=== PATIENT | male | born 1995 | race African-American/Black ===

== ENCOUNTER 2017-04-09 20:22 | Emergency (ER) | payer SELFPAY ==
[~2017-04-09] VITALS: Ht 185.4 cm; Wt 98.4 kg
[2017-04-09 20:29] VITALS: Ht 185.4 cm; Wt 98.4 kg
[2017-04-09] MEDS ORDERED: LIDOCAINE/MYLANTA 40 ML BTL PO ONE (22:00)
[2017-04-09] MEDS ORDERED: DEXAMETHASONE 10 MG/ML 1 ML INJ IM ONE (22:00)
[2017-04-09] MEDS ORDERED: LORAZEPAM 2 MG INJ IM ONE (22:00)
[2017-04-09 22:29] LABS: BASOPHIL # 0.1 10^3/ul (0.0-0.1); BASOPHILS % 0.5 % (0.0-2.0); EOSINOPHILS # 0.3 10^3/ul (0.0-0.5); EOSINOPHILS % 2.7 % (0.0-7.0); HEMATOCRIT 45.4 % (42.0-52.0); HEMOGLOBIN 15.6 g/dl (14.0-18.0); LYMPHOCYTES # 3.6 10^3/ul (0.8-2.9); LYMPHOCYTES % 30.5 % (15.0-51.0); MEAN CORPUSCULAR HGB CONC 34.4 g/dl (32.0-37.0); MEAN CORPUSCULAR VOLUME 90.3 fl (82.0-101.0); MEAN PLATELET VOLUME 9.3 fl (7.4-10.4); MONOCYTE # 1.3 10^3/ul (0.3-0.9); MONOCYTES % 11.3 % (0.0-11.0); NEUTROPHIL # 6.5 10^3/ul (1.6-7.5); NEUTROPHILS % 54.7 % (39.0-77.0); PLATELET COUNT 288 10^3/UL (140-415); RED BLOOD COUNT 5.03 10^6/ul (4.70-6.10); RED CELL DISTRIBUTION WIDTH 12.5 % (11.5-14.5); WHITE BLOOD COUNT 11.9 10^3/ul (4.8-10.8)
[2017-04-09 22:51] LABS: ANION GAP 16 (8-16); BLOOD UREA NITROGEN 10 mg/dl (7-20); CALCIUM 9.5 mg/dl (8.4-10.2); CARBON DIOXIDE 30 mmol/L (21-31); CHLORIDE 102 mmol/L (97-110); CREATININE 1.01 mg/dl (0.61-1.24); GLUCOSE 105 mg/dl (70-220); POTASSIUM 3.4 mmol/L (3.5-5.1); SODIUM 145 mmol/L (135-144)
[2017-04-09 23:04] LABS: TROPONIN-I < 0.012 ng/ml (0.00-0.12)
--- NOTE | 2017-04-09 23:38 | RADRPT ---
PROCEDURE: XR Chest. CLINICAL INDICATION: Chest pain. TECHNIQUE: Single frontal chest x-ray. COMPARISON: None. FINDINGS: The cardiomediastinal silhouette is unremarkable. There is no congestive heart failure.. No focal i nfiltrate is seen. There is no pleural effusion. There is no pneumothorax. The osseous structures are unremarkable. IMPRESSION: 1. No active disease. RPTAT: HMVK .Romario Raygoza MD, MD Date Time Electronically viewed and signed by .Romario Raygoza MD, MD on 04/09/2017 23:38 .K/
--- NOTE | 2017-04-09 23:43 | RADRPT ---
PROCEDURE: X-ray soft tissue neck CLINICAL INDICATION: Pain. Throat feels closed.. TECHNIQUE: Frontal and lateral x-rays of the soft tissues of the neck are available for review. COMPARISON: None available FINDINGS: The epiglottis is normal. The airway is clear. Prevertebral soft tissues are unremarkable The oss eous structures are unremarkable. There are no radiopaque foreign bodies. IMPRESSION: Negative examination. RPTAT: HMVK .Romario Raygoza MD, Date Time Electronically viewed and signed by .Romario Raygoza MD, MD on 04/09/2017 23:43 .K/
[2017-04-09] MEDS ORDERED: OMEP20CA16 PO (23:51)
[2017-04-09] MEDS ORDERED: RANI150T9 PO (23:51)
[2017-04-10] MEDS ORDERED: AZIT250T94 PO (00:03)
--- NOTE | 2017-04-12 01:47 | ERD ---
ER Documentation Chief Complaint Chief Complaint neck pain/sore throat/chest pain since yesterday HPI This patient is a 21-year-old male presenting to the emergency department with complaints of chest pain which onset suddenly while he was driving in [place] earlier this evening. He described it as midsternal, burning in nature, with radiation to his throat. He does have history of GERD. This felt similar. He denies fevers, chills, shortness of breath, or other symptoms currently. He took no medication prior to arrival. ROS All systems reviewed and are negative except as per history of present illness. Medications Home Meds Active Scripts Azithromycin* (Zithromax*) 250 Mg Tablet, 250 MG PO .ZPACK DIRECTED, #6 TAB TAKE 500 MG (2 TABS) THE FIRST DAY THEN 250 MG (1 TAB) DAYS 2-5 Prov:MONICA TAPIA PA-C 04/10/17 Ranitidine Hcl* (Zantac*) 150 Mg Tablet, 150 MG PO BID Y for EPIGASTRIC PAIN, # 30 TAB Prov:MONICA TAPIA PA-C 04/09/17 Omeprazole* (Omeprazole*) 20 Mg Capsule., 20 MG PO DAILY, #20 Prov:MONICA TAPIA PA-C 04/09/17 Allergies Allergies: Coded Allergies: No Known Drug Allergies (Verified Allergy, Unknown, 04/09/17) PMhx/Soc Medical and Surgical Hx: pt denies Medical Hx, pt denies Surgical Hx History of Surgery: No Anesthesia Reaction: No Hx Neurological Disorder: No Hx Respiratory Disorders: No Hx Cardiac Disorders: No Hx Psychiatric Problems: No Hx Miscellaneous Medical Probl: No Hx Alcohol Use: No Hx Substance Use: No Hx Tobacco Use: No Smoking Status: Never smoker Physical Exam Vitals Vital Signs Date Time Temp Pulse Resp B/P Pulse Ox O2 Delivery O2 Flow Rate FiO2 04/09/17 20:29 96.4 100 20 160/89 98 Physical Exam Const: Nontoxic male, slightly anxious secondary to symptoms. Head: Atraumatic Eyes: Normal Conjunctiva ENT: Normal External Ears, Nose and Mouth. Neck: Full range of motion..~ No meningismus. Resp: Clear to auscultation bilaterally Cardio: Regular rate and rhythm, no murmurs Abd: Soft, mild midepigastric tenderness palpation, no McBurney's point tenderness, no rebound tenderness or guarding., non distended. Normal bowel sounds Skin: No petechiae or rashes Ext: No cyanosis, or edema Neur: Awake and alert Psych: Normal Mood and Affect Result Diagram: 04/09/17221904/09/172219 Results 24 hrs Laboratory Tests Test 04/09/17 22:20 White Blood Count 11.910^3/ul Red Blood Count 5.0310^6/ul Hemoglobin 15.6g/dl Hematocrit 45.4% Mean Corpuscular Volume 90.3fl Mean Corpuscular Hemoglobin 31.0pg Mean Corpuscular Hemoglobin Concent 34.4g/dl Red Cell Distribution Width 12.5% Platelet Count 71812^3/UL Mean Platelet Volume 9.3fl Neutrophils % 54.7% Lymphocytes % 30.5% Monocytes % 11.3% Eosinophils % 2.7% Basophils % 0.5% Nucleated Red Blood Cells % 0.0/100WBC Neutrophils # 6.510^3/ul Lymphocytes # 3.610^3/ul Monocytes # 1.310^3/ul Eosinophils # 0.310^3/ul Basophils # 0.110^3/ul Nucleated Red Blood Cells # 0.010^3/ul Sodium Level 145mmol/L Potassium Level 3.4mmol/L Chloride Level 102mmol/L Carbon Dioxide Level 30mmol/L Anion Gap 16 Blood Urea Nitrogen 10mg/dl Creatinine 1.01mg/dl Glucose Level 105mg/dl Calcium Level 9.5mg/dl Troponin I < 0.012ng/ml Current Medications Medications (Trade) Dose Ordered Sig/Phuong Route PRN Reason Start Time Stop Time Status Last Admin Dose Admin Dexamethasone (Decadron) 10 mg ONCE ONCE IM 04/09/17 22:00 04/09/17 22:01 DC 04/09/17 22:29 Lorazepam (Ativan) 1 mg ONCE ONCE IM 04/09/17 22:00 04/09/17 22:01 DC Miscellaneous Medication (Gi Cocktail (2)) 40 ml ONCE ONCE PO 04/09/17 22:00 04/09/17 22:01 DC 04/09/17 22:29 Procedures/MDM Patient is a 21-year-old male presenting to the emergency department with complaints of chest pain. The patient was given IM Decadron for throat swelling , Ativan IM, and GI cocktail. He was feeling significantly improved on reevaluation. Review of laboratory results: CBC showed slight leukocytosis at 11.9, but no neutrophilia. Chemistry panel was within normal limits. Troponin was not elevated. Chest x-ray showed no active disease. Soft tissue neck x- ray was negative. After workup in the department, the patient was stable for outpatient management. Epigastric pain was likely secondary to acid reflux. Other differentials included anxiety, esophageal varices, cardiac chest pain, and others. After workup in the department, no life-threatening pathology was identified. Patient is stable for discharge as he was feeling much improved. No evidence of life-threatening pathology at time of discharge. Pt/family in agreement with discharge plan/diagnosis. Pt/family advised to return immediately with any new or worsening symptoms. Follow-up with primary care physician within the next 1-2 days. Disclaimer: Inadvertent spelling and grammatical errors are likely due to EHR/ dictation software use and do not reflect on the overall quality of patient care. Also, please note that the electronic time recorded on this note does not necessarily reflect the actual time of the patient encounter. EKG: Interpreted by ED physician Rate/Rhythm: Normal sinus rhythm with a rate of 99 bpm. QRS, ST, T-waves: No changes consistent w/ acute ischemia Impression: No evidence of ischemia or arrhythmia PROCEDURE: X-ray soft tissue neck CLINICAL INDICATION: Pain. Throat feels closed.. TECHNIQUE: Frontal and lateral x-rays of the soft tissues of the neck are available for review. COMPARISON: None available FINDINGS: The epiglottis is normal. The airway is clear. Prevertebral soft tissues are unremarkable The osseous structures are unremarkable. There are no radiopaque foreign bodies. IMPRESSION: Negative examination. RPTAT: HMVK .Romario Raygoza MD, MD Date Time Electronically viewed and signed by .Romario Raygoza MD, on 04/09/2017 23:43 PROCEDURE: XR Chest. CLINICAL INDICATION: Chest pain. TECHNIQUE: Single frontal chest x-ray. COMPARISON: None. FINDINGS: The cardiomediastinal silhouette is unremarkable. There is no congestive heart failure.. No focal infiltrate is seen. There is no pleural effusion. There is no pneumothorax. The osseous structures are unremarkable. IMPRESSION: 1. No active disease. RPTAT: HMVK .Romario Raygoza MD, Date Time Electronically viewed and signed by .Romario Raygoza MD, on 04/09/2017 23:38 Departure Diagnosis: Primary Impression: Chest wall pain Additional Impression: Acid reflux Esophagitis presence: esophagitis presence not specified Qualified Code: K21.9 - Gastroesophageal reflux disease, esophagitis presence not specified Condition: Fair Patient Instructions: Chest Wall Pain, Costochondritis, Gerd (Adult), Pharyngitis, Strep (Presumed) Referrals: [facility] YOU HAVE RECEIVED A MEDICAL SCREENING EXAM AND THE RESULTS INDICATE THAT YOU DO NOT HAVE A CONDITION THAT REQUIRES URGENT TREATMENT IN THE EMERGENCY DEPARTMENT. FURTHER EVALUATION AND TREATMENT OF YOUR CONDITION CAN WAIT UNTIL YOU ARE SEEN IN YOUR DOCTORS OFFICE WITHIN THE NEXT 1-2 DAYS. IT IS YOUR RESPONSIBILITY TO MAKE AN APPOINTMENT FOR FOLOW-UP CARE. IF YOU HAVE A PRIMARY DOCTOR --you should call your primary doctor and schedule an appointment IF YOU DO NOT HAVE A PRIMARY DOCTOR YOU CAN CALL OUR PHYSICIAN REFERRAL HOTLINE AT IF YOU CAN NOT AFFORD TO SEE A PHYSICIAN YOU CAN CHOSE FROM THE FOLLOWING [facility] [address] [facility]. [facility] [address] [facility] [facility] [address] [facility] [facility] [address] [facility]. [facility] [address] [facility]. [facility] [address] Additional Instructions: Follow up with your PCP within the next 1-3 days for a repeat evaluation. If you require a referral to a specialist, your Primary Care Provider may be able to provide this for you. In most patient cases, a referral is not required. If you have further questions regarding this matter, please ask your Primary Care Provider. Return the the emergency department immediately if symptoms worsen or change. If you have any questions regarding medications, ask your pharmacist or us before you leave. If any adverse reactions, occur while taking your medications, discontinue the treatment and return to the emergency department immediately. If any new or worsening symptoms, uncontrolled fevers, or other unexplained symptoms occur, return to the emergency department immediately. Take your medications as directed, and complete the entire course of treatment. MONICA TAPIA PA-C Apr 12, 2017 01:47
== END 2017-04-10 00:31 | disposition home or self-care (01) ==
LOC: FTE 20:22
DX: R07.89 Other chest pain (principal); K21.9 Gastro-esophageal reflux disease without esophagitis
CPT/HCPCS: 70360; 71010; 80048; 84484; 85025; 93005; 96372; 99285; J1100; J2060